=== PATIENT | male | born 1990 | race Caucasian/White ===

== ENCOUNTER 2024-04-21 15:37 | Emergency (ER) | payer OTHER, SELFPAY ==
[2024-04-21] VITALS (9 sets, daily range): BP systolic 123–175; BP diastolic 82–103; PULSE 94–126; RESP 14–22; TEMP 36.4–37.3; O2SAT 94–96; BMI 34.4
--- NOTE | ~2024-04-21 | CT_ITS ---
EXAMINATION: CT ABDOMEN AND PELVIS WITH CONTRAST CLINICAL INFORMATION: Severe abdominal pain COMPARISON: CT abdomen and pelvis 01/08/2019 TECHNIQUE: Multidetector volumetric images were obtained from the superior aspect of the liver through the pubic symphysis following administration 85 mL of Omnipaque 350 intravenous contrast. Sagittal and coronal reformatted images were obtained on the technologist's workstation. Oral contrast: No This CT examination was performed using dose optimization techniques as appropriate, variously including the following: *Automated exposure control *Adjustment of mA and/or kV according to patient size (this includes techniques or standardized protocols for targeted exams where dose is matched to indication/reason for exam; i.e. extremities or head) *Use of iterative reconstruction technique DLP: 818 mGy-cm FINDINGS: LUNG BASES: The visualized lung bases are unremarkable. LIVER, GALLBLADDER, AND BILIARY TREE: The liver is enlarged measuring 20 cm in the craniocaudal dimension and demonstrates normal surface contour. No focal hepatic lesion. No biliary ductal dilatation is present. The gallbladder is unremarkable with no evidence of radiopaque gallstones, gallbladder wall thickening, or obvious pericholecystic inflammatory changes. PANCREAS: Unremarkable. SPLEEN: Stable splenomegaly measuring approximately 16.5 cm in the axial plane. No focal splenic lesion. ADRENAL GLANDS: Unremarkable. KIDNEYS AND URETERS: The kidneys are normal in size, shape, and attenuation. No hydronephrosis, hydroureter, or calculi seen. No perinephric stranding. There is a simple appearing cortical cyst in the lower pole of the left kidney for which no dedicated follow-up imaging is required. BLADDER: Unremarkable. GASTROINTESTINAL TRACT: Stomach and small bowel are nondilated. Again noted sigmoid colonic diverticulosis. Mild wall thickening in the region of the sigmoid colon which may be secondary to muscular hypertrophy. No significant pericolonic inflammatory changes. The appendix is not utilized. ABDOMINAL WALL: No significant hernia is appreciated. LYMPH NODES: No enlarged abdominopelvic lymph nodes. VASCULAR: Abdominal aorta is nonaneurysmal. PELVIC VISCERA: Unremarkable. OSSEOUS STRUCTURES: No acute or suspicious osseous abnormality. CT/CT abdomen pelvis w IV con IMPRESSION: Again noted mild manifestations of sigmoid diverticulosis without evidence of acute diverticulitis. Stable splenomegaly. Mild nonspecific hepatomegaly.
--- NOTE | ~2024-04-21 | US_ITS ---
EXAMINATION: US ABDOMEN LIMITED CLINICAL INFORMATION: Right upper quadrant pain. COMPARISON: CT abdomen 04/21/2024 TECHNIQUE: Real-time imaging of the right upper quadrant abdominal viscera. FINDINGS: GALLBLADDER: Normal. The gallbladder is physiologically distended without evidence of stones, sludge, polyps, wall thickening or pericholecystic fluid. COMMON BILE DUCT: Normal in caliber measuring 0.96 cm in diameter. FREE FLUID: None. US/US abdomen limited IMPRESSION: No sonographic evidence of acute cholecystitis.
--- NOTE | ~2024-04-21 | XR_ITS ---
EXAMINATION: XR ABDOMEN KUB CLINICAL INDICATION: Stomach. A loose stools since last evening COMPARISON: None available. TECHNIQUE: Supine frontal of the abdomen. FINDINGS: The bowel gas pattern is normal with no evidence of ileus or obstruction. No unusual soft tissue calcifications are noted. The bones are unremarkable. XR/XR KUB IMPRESSION: Unremarkable examination.
--- NOTE | 2024-04-21 16:13 | ED.ABDPAIN ---
HPI - Abdominal Pain General Chief Complaint: Abdominal Pain Stated Complaint: severe abd pain Hx bowel obstruction Time Seen by Provider: 04/21/24 16:20 Source: patient Mode of arrival: ambulatory Limitations: no limitations History of Present Illness ED Provider: Sandra FLORES HPI narrative: This is a 33-year-old male history of obesity, small-bowel obstructions status post multiple resections presenting to the emergency department with severe abdominal pain with radiation into back for the last 12 hours, patient reports this started while he was at work, pain is severe, associated with nausea, chest discomfort, fatigue, malaise. This started suddenly. He reports he just does not feel well. Pain greater than 10/10. Patient denies sick contacts. Denies significant family cardiac history. Denies shortness of breath, fevers, chills, headache, vision changes, dizziness or weakness. Related Data Previous Rx's ?Medication ?Instructions ?Recorded aluminum-mag hydroxide-simethicone 5 ml PO 5XD PRN dyspepsia #355 mL 04/21/24 200 mg-200 mg-20 mg/5 mL oral susp (Maalox Advanced) pantoprazole 40 mg tablet,delayed 40 mg PO DAILY 4 weeks #28 tabs 04/21/24 release (Protonix) Allergies Allergy/AdvReac Type Severity Reaction Status Date / Time No Known Allergies Allergy Unknown NONE Verified 04/21/24 16:15 [No Known Allergies*] Review of Systems Review of Systems Yes all other systems are reviewed and are negative PMFSH Past Medical History Attestation statement: The following information was validated with the patient. Source: old records reviewed and nursing notes reviewed Social History Social History Advance Directives: No Advance Directives Information Provided: No Do you have a plan to hurt others: No Plan Physical Exam ED Vital Signs: Vital Signs - 24 hr 04/21/24 16:14 04/21/24 16:20 04/21/24 16:30 Temperature 97.5 F 98.1 F Pulse Rate 126 H 100 Respiratory Rate 16 20 Blood Pressure 175/103 H 123/82 128/90 H Pulse Oximetry 96 94 Oxygen Delivery Method Room Air Room Air 04/21/24 16:32 04/21/24 18:27 04/21/24 20:48 Temperature Pulse Rate 94 Respiratory Rate 14 22 H Blood Pressure 123/82 Pulse Oximetry Oxygen Delivery Method 04/21/24 20:49 04/21/24 20:50 04/21/24 23:20 Temperature 99.1 F Pulse Rate 99 96 99 Respiratory Rate 18 Blood Pressure 126/86 128/87 127/93 H Pulse Oximetry 95 Oxygen Delivery Method Room Air BMI result Body Mass Index 34.4 vss --> tachy likey due to pain Appearance: Alert.? Oriented X3.? No acute distress.? Head: Normocephalic, atraumatic, no step-offs or deformities Eyes: Pupils equal, round and reactive to light.? Neck: Normal inspection.? Neck supple.? CVS: Normal heart rate and rhythm.? Pulses normal.? Respiratory: No respiratory distress.? Breath sounds normal.? Abdomen: Soft and diffusely tender abdomen w/ hypoactive bowel sounds throughout.? Skin: Skin warm and dry.? Normal skin color.? Normal skin turgor.? Extremities: No lower extremity edema.? No calf ttp. 5/5 strength to bilateral upper and lower extremities Back: No midline tenderness, no C-spine tenderness, full range of motion, no CVA tenderness bilaterally Neuro: Oriented X 3.? No motor deficit.? No sensory deficit. CN 2-12 intact Course Course Course Narrative: This is an RME: Additional HPI, ROS, PE not included below will be deferred to primary provider. RME assessment and note performed by: Anel Zacarias PA-C This is a [id number]-male who presenting to the emergency department with complaints of abdominal pain since this morning. History of bowel obstructions requiring resections. Patient appears to be visibly uncomfortable, patient brought back to the main emergency department Plan: Labs, KUB xray, further ER evaluation needed Reevaluation(s) Reevaluation #1: CBC with leukocytosis 12.2 with left shift, for this reason empiric antibiotics ordered. Chemistry no acute electrolyte abnormalities needing intervention. However patient is noted to have an elevated T bili, direct bili and transaminitis. Patient also noted to have a lactic acid of 0.9. Troponin negative, EKG nonischemic. KUB without obstruction. Ultrasound of abdomen with no sonographic evidence of acute cholecystitis. CT abdomen pelvis with again noted mild manifestation of sigmoid diverticulosis without evidence of acute diverticulitis stable splenomegaly nonspecific hepatomegaly. Patient still in excruciating pain he has been throughout his visit pain has been controlled with Dilaudid, after few hours he becomes very uncomfortable,, unable to sit still due to severe pain. Family and acquaintances tell me this is not his normal presentation he is not a complainer he usually is not in this much pain. Plan is hospital admission Time: 23:10 Reevaluation #2: Discussed this case w/ my attending who agrees w/ treatment plan and offers no other suggestions other than hospital admission for intractable pain Time: 23:12 Reevaluation #3: Patient was seen and evaluated at the bedside by Dr. Scott, who doesnt feel like patient requieres hospital admission. He thinks these are gastric ulcers or gastritis. He will not admit patient he recommends dc w/ pantoprazol and maalox. I will add GI follow up for further evaluation and treatment. Patient and fiance verbalize understanding about this and have no questions. Patient comfortable at this time. Plan- dc home Medical Decision Making Medical Decision Making [facility] Narrative: [id number] 33 year old male presents w/ severe abd pain since this morning w/ radiation into back hx of obstructions. PE- Soft and diffusely tender abdomen w/ hypoactive bowel sounds throughout.? hx and pe concerning for obstruction vs kidney stone. Less likely dissection but will obtain CT. Less likely acs or pe. No signs of acute abdomen. [facility] Plan- labs, urine, imaging, ekg Differential Diagnosis Differential Diagnoses: The differential diagnosis associated with the presentation includes hx and pe concerning for obstruction vs kidney stone. Less likely dissection but will obtain CT. Less likely acs or pe. No signs of acute abdomen. [facility] Admission/Observation Consideration of admission/observation: Escalation of care including admission/observation considered possible Lab Data [facility] Lab Attestation statement: I reviewed the patient's lab results. 04/21/24 16:27 04/21/24 16:27 Labs: Lab Results 04/21/24 04/21/24 04/21/24 Range/Units 16:27 17:47 20:45 WBC 12.2 H (4.8-10.8) X10*3/uL RBC 5.16 (4.60-5.80) X10*6/uL Hgb 16.5 (14.0-18.0) g/dl Hct 44.0 (42.0-52.0) % MCV 85.3 (80.0-98.0) fL MCH 32.0 (27.0-33.0) pg MCHC 37.5 H (31.0-36.0) g/dl RDW 13.2 (11.0-16.0) % Plt Count 223 (160-400) X10*3/uL MPV 9.5 (9.4-12.4) fL Immature Gran % (Auto) 0.5 H (0.0-0.4) % Neut % (Auto) 86.8 H (45-73) % Lymph % (Auto) 6.3 L (20-40) % [place] % (Auto) 5.8 (2-11) % Eos % (Auto) 0.2 (0-4) % Baso % (Auto) 0.4 (0-2) % Lymph # (Auto) 0.8 L (1.2-4.9) X10*3/uL [place] # (Auto) 0.7 (0.1-1.2) X10*3/uL Eos # (Auto) 0.0 (0.0-0.4) X10*3/uL Baso # (Auto) 0.1 (0.0-0.2) X10*3/uL Abs Immat Gran (auto) 0.06 H (0.00-0.03) X10*3/uL Absolute Neuts (auto) 10.6 H (2.0-8.3) x10*3/uL Absolute Nucleated RBC 0.000 (0.0-0.012) X10*3/uL Nucleated RBC % (auto) 0.0 (0.0-0.2) /100WBC PT 12.4 12.7 (11.1-13.3) SEC INR 1.0 1.0 (0.9-1.1) Sodium 140 (135-145) mmol/L Potassium 4.0 (3.3-5.1) mmol/L Chloride 108 (96-108) mmol/L Carbon Dioxide 23 (22-29) mmol/L Anion Gap 13 (12-20) BUN 11 (9-16) mg/dL Creatinine 0.86 (0.5-1.4) mg/dL Estim Creat Clear Calc 149.5 Estimated GFR > 60 Random Glucose 99 (60-115) mg/dL Lactic Acid 0.9 (0.5-2.0) mmol/L Calcium 9.9 (8.4-10.2) mg/dL Magnesium 2.1 (1.6-2.6) mg/dL Total Bilirubin 1.6 H (0.0-1.0) mg/dL Direct Bilirubin 0.6 H (0.0-0.5) mg/dL AST 130 H (5-37) U/L ALT 130 H (0-40) U/L Alkaline Phosphatase 73 (39-117) U/L Troponin I High Sens < 2.7 (<3.5-35.0) ng/L Total Protein 7.6 (6.5-8.0) g/dL Albumin 4.7 (3.5-5.0) g/dL Lipase 42 (8-78) U/L Urine Color Yellow Urine Appearance Clear Urine pH 7.0 (5.0-9.0) Ur Specific [place] >= 1.030 H (1.005-1.025) Urine Protein Negative (Neg-Trace) mg/dL Urine Glucose (UA) Negative (Negative) mg/dL Urine Ketones Negative (Negative) mg/dL Urine Blood Negative (Negative) Urine Nitrite Negative (Negative) Ur Leukocyte Esterase Small (1+) H (Negative) Urine RBC 0-2 (0-2) /HPF Urine WBC 6-10 H (0-5) /HPF Ur Squamous Epith Cells 0-2 (0-2) /HPF Urine Bacteria None Seen (None Seen) Hyaline Casts 0-2 (0-2) /LPF Influenza Type A (PCR) NEGATIVE (Negative) Influenza Type B (PCR) NEGATIVE (Negative) RSV RNA Qual (PCR) NEGATIVE (Negative) SARS-CoV-2 RNA (RT-PCR) NEGATIVE (Negative) Independent Interpretation I performed an independent interpretation of an: CT Scan Radiology Impression Discussion of test interpretation with radiology: I have reviewed the radiologist's reading. Medications Administered Discontinued Medications Generic Name Dose Route Start Last Admin Trade Name Freq PRN Reason Stop Dose Admin Diphenhydramine HCl 25 mg 04/21/24 18:22 04/21/24 18:27 Diphenhydramine Hcl 50 Mg/Ml Vial IVPUSH 04/21/24 18:23 25 mg ONCE ONE Administration Hydromorphone HCl 1 mg 04/21/24 18:00 04/21/24 18:27 Hydromorphone Hcl 1 Mg/Ml Syringe IVPUSH 04/21/24 18:01 1 mg ONCE ONE Administration Protocol Hydromorphone HCl 1 mg 04/21/24 23:01 04/21/24 23:07 Hydromorphone Hcl 1 Mg/Ml Syringe IVPUSH 04/21/24 23:02 1 mg ONCE ONE Administration Protocol Piperacillin Sod/Tazobactam 50 mls @ 100 mls/hr 04/21/24 17:00 04/21/24 20:39 Sod 3.375 gm/ Sodium Chloride IV 04/21/24 17:29 Infused ONCE ONE Infusion Iohexol 85 ml 04/21/24 17:32 04/21/24 17:32 Iohexol 350 Mg/Ml 100 Ml Infus..Btl IV 04/21/24 17:33 85 ml ONCE ONE Administration Metoclopramide HCl 10 mg 04/21/24 18:22 04/21/24 18:27 Metoclopramide Hcl 10 Mg/2 Ml Vial IVPUSH 04/21/24 18:23 10 mg ONCE ONE Administration Morphine Sulfate 4 mg 04/21/24 16:25 04/21/24 16:32 Morphine Sulfate 4 Mg/Ml Cartridge IVPUSH 04/21/24 16:26 4 mg ONCE ONE Administration Protocol Ondansetron HCl 4 mg 04/21/24 16:25 04/21/24 16:32 Ondansetron Hcl 4 Mg/2 Ml Vial IVPUSH 04/21/24 16:26 4 mg ONCE ONE Administration Critical Care Time Critical Care Time Critical Care Time: Yes Total Critical Care Time: 45 Attestation: I attest to this time spent taking care of the patient, obtaining history, physical, reviewing labs, imaging, speaking to my attending, specialist or hospitalist. Discharge Plan Discharge Clinical Impression: Nausea, Abdominal pain, Gastritis Patient Disposition: Home, Self-Care Instructions: Gastritis (ED), Acute Nausea and Vomiting (ED), Abdominal Pain (ED) Additional Instructions: Take your medications as prescribed. If you were prescribed antibiotics today, it is important that you take your medication to their entirety, do not skip any doses, do not finish them early. Follow-up with your primary care provider this week. Return to the emergency department with new or worsening symptoms. Such as fevers, chills, chest pain, shortness of breath, nausea, vomiting, dizziness, headache, vision changes, lethargy In case of emergency call 911 Follow-up with gastroenterology Prescriptions: New pantoprazole [Protonix] 40 mg tablet,delayed release (DR/EC) 40 mg PO DAILY 28 Days Qty: 28 0RF alum-mag hydroxide-simeth [Maalox Advanced] 200-200-20 mg/5 mL suspension 5 ml PO 5XD PRN (Reason: dyspepsia) Qty: 355 0RF Rx Instructions: administer between meals and at bedtime [place] [facility] [place] [facility] [place] Group] - 2 days Kassie Kemp RN [Registered Nurse] - 2 days Stand Alone Forms: Work/School Release Print Language: Citizen [place]
--- NOTE | 2024-04-21 16:25 | ECG_ITS ---
Test Reason : abd pain Blood Pressure : / mmHG Vent. Rate : 096 BPM Atrial Rate : 096 BPM P-R Int : 138 ms QRS Dur : 080 ms QT Int : 344 ms P-R-T Axes : 037 001 -01 degrees QTc Int : 434 ms Normal sinus rhythm Normal ECG When compared with ECG of 29-APR-2012 19:13, No significant change was found Referred By: Lon Hughes Electronically Signed By:Rick Flores
[2024-04-21 16:32] LABS: MANUAL DIFF FLAG NO
[2024-04-21] MEDS: ondansetron HCL 4 MG/2 ML VIAL IVPUSH (16:32)
[2024-04-21] MEDS: Morphine Sulfate 4 MG/ML CARTRIDGE IVPUSH (16:32)
[2024-04-21 16:33] LABS: Basophils Absolute Auto 0.1 X10*3/uL (0.0-0.2); Basophils Percent Auto 0.4 % (0-2); Eosinophils Percent Auto 0.2 % (0-4); Hemoglobin 16.5 g/dl (14.0-18.0); Imm Gran Abs Auto 0.06 X10*3/uL (0.00-0.03); Imm Gran Pct Auto 0.5 % (0.0-0.4); Lymphocytes Absolute Auto 0.8 X10*3/uL (1.2-4.9); Lymphocytes Percent Auto 6.3 % (20-40); Mean Corpuscular HGB Conc 37.5 g/dl (31.0-36.0); Mean Corpuscular Volume 85.3 fL (80.0-98.0); Mean Platelet Volume 9.5 fL (9.4-12.4); Monocytes Absolute Auto 0.7 X10*3/uL (0.1-1.2); Monocytes Percent Auto 5.8 % (2-11); Neutrophils Absolute Auto 10.6 x10*3/uL (2.0-8.3); Neutrophils Percent Auto 86.8 % (45-73); Platelet Count 223 X10*3/uL (160-400); Red Blood Count 5.16 X10*6/uL (4.60-5.80); Red Cell Distribution Width 13.2 % (11.0-16.0); White Blood Count 12.2 X10*3/uL (4.8-10.8)
--- NOTE | 2024-04-21 16:39 | MHC.EDTECH ---
late entry: at this time the pt was changed over into a hospital gown and placed on the team automobile assembler. Lab drawns and EKG done. pt stated he was in severe pain.
[2024-04-21 16:46] LABS: Prothrombin Time 12.4 SEC (11.1-13.3)
[2024-04-21 16:50] LABS: Alanine Aminotransferase 130 U/L (0-40); Albumin Level 4.7 g/dL (3.5-5.0); Alkaline Phosphatase 73 U/L (39-117); Anion Gap 13 (12-20); Aspartate Amino Transferase 130 U/L (5-37); Bilirubin Direct 0.6 mg/dL (0.0-0.5); Bilirubin Total 1.6 mg/dL (0.0-1.0); Blood Urea Nitrogen 11 mg/dL (9-16); Calcium 9.9 mg/dL (8.4-10.2); Carbon Dioxide 23 mmol/L (22-29); Chloride 108 mmol/L (96-108); Creatinine Clr Calc Pharmacy 149.5; Estimated Glomerular Filt Rate > 60; Glucose Random 99 mg/dL (60-115); Lipase 42 U/L (8-78); Magnesium 2.1 mg/dL (1.6-2.6); Sodium 140 mmol/L (135-145); Total Protein 7.6 g/dL (6.5-8.0)
[2024-04-21 16:59] LABS: Troponin-I High Sensitivity < 2.7 ng/L (<3.5-35.0)
[2024-04-21] MEDS: iohexoL 350 MG/ML 100 ML INFUS..BTL 85 ML IV (17:32)
[2024-04-21 17:59] LABS: Appearance Urine Clear; Color Urine Yellow; Glucose Urine UA Negative (Negative); Leukocyte Esterase Urine Small (1+) (Negative); Nitrite Urine Negative (Negative); Specific Gravity - Urine >= 1.030 (1.005-1.025); UMIC TRIGGER UACC YES; Urine Blood Negative (Negative); Urine Ketones Negative (Negative); Urine Protein Negative (Neg-Trace)
[2024-04-21 18:04] LABS: Bacteria Urine None Seen (None Seen); Hyaline Casts Urine 0-2 /LPF (0-2); Prothrombin Time 12.7 SEC (11.1-13.3); RBC Urine 0-2 /HPF (0-2); Squamous Epithelial Cell Urine 0-2 /HPF (0-2); UACC Culture Trigger YES
[2024-04-21 18:08] LABS: Lactic Acid 0.9 mmol/L (0.5-2.0)
[2024-04-21] MEDS: Piperacillin Sodium/Tazobactam 3.375 GM in 0.9 % Sodium Chloride 50 ML IV (18:26)
[2024-04-21] MEDS: diphenhydrAMINE HCL 50 MG/ML VIAL 25 MG IVPUSH (18:27)
[2024-04-21] MEDS: Metoclopramide HCl 10 MG/2 ML VIAL IVPUSH (18:27)
[2024-04-21] MEDS: HYDROmorphone HCl 1 MG/ML SYRINGE IVPUSH ×2 (18:27→23:07)
--- NOTE | 2024-04-21 19:05 | MHC.EDTECH ---
THIS TECH TOOK OVER CARE PCT AT 1900 Call light within reach Plan of care ongoing
[2024-04-21 21:43] LABS: Influenza A PCR NEGATIVE (Negative); Influenza B PCR NEGATIVE (Negative); Resp Syncy Virus RNA Qual PCR NEGATIVE (Negative); SARS COV2 PCR INHOUSE NEGATIVE (Negative)
--- NOTE | 2024-04-21 23:47 | PM.EVENT ---
Event Note Date of Service: 04/21/24 Event Note: This is a 33-year-old male with pertinent history of bowel obstruction who presents to the emergency department for evaluation of abdominal pain. Patient states it started when he was at work. It was generalized around epigastric region, intermittently radiated to the back. Patient states he has had similar episodes of pain x2 in the last 3-4 months. He was seen at [facility] and discharged from the ER after his pain was relieved with Maalox. Patient tried Maalox today and it helped some but pain returned. Patient does admit symptoms of gastroesophageal reflux disease including burping/belching. No episodes of vomiting. Able to tolerate p.o. intake. Had episodes of loose stools on the day of presentation. No blood in stools. No fever or chills. No chest pain. Symptoms likely acid dyspepsia due to gastroesophageal reflux disease. Reviewed CT abdomen/abdomen ultrasound which is without any acute abnormality. Will give IV Protonix 40mg while in the ER. Patient stable to be discharged with p.o. Protonix 40 mg once daily. He agrees with the plan. Asked to return to the ER in case of new or worsening complaints. Time Spent With Patient Time: Total time managing care of this patient today ____ minutes.
[2024-04-22] MEDS: PHENobarb/Hyoscy/Atropine/Scop 10 ML ELIXIR PO (00:06)
[2024-04-22] MEDS: Pantoprazole Sodium 40 MG/10 ML VIAL IVPUSH (00:07)
[2024-04-22] MEDS: Magnesium Hydrox/Alum Hydrox 30 ML ORAL.SUSP 15 ML PO (00:07)
[2024-04-22 00:19] VITALS: BP 120/83; PULSE 104; RESP 17; TEMP 37.3; O2SAT 94
== END 2024-04-22 00:32 | disposition home or self-care (01) ==
PROVIDERS: Physician Assistant; Physician Assistant Medical; Emergency Provider Emergency Medicine
DX: R11.0 Nausea (principal); R10.9 Unspecified abdominal pain; M54.50 Low back pain, unspecified; R53.83 Other fatigue; R07.89 Other chest pain; Z79.899 Other long term (current) drug therapy; Z03.818 Encounter for observation for suspected exposure to other biological agents ruled out
CPT/HCPCS: 0241U; 36415; 74018; 74177; 76705; 80048; 80076; 81001; 83605; 83690; 83735; 84484; 85025; 85610; 87040; 87086; 92950; 93005; 96365; 96366; 96375; 96376; 99285; J1170; J1200; J2270; J2405; J2470; J2543; J2765; Q9967

== ENCOUNTER → 2024-04-21 16:25 | Outpatient (BNV) | payer OTHER, SELFPAY | PROVIDERS: Emergency Provider Emergency Medicine; Visit Provider Internal Medicine Cardiovascular Disease | DX: R10.9 Unspecified abdominal pain (principal) | CPT/HCPCS: 93010 ==